=== PATIENT | female | born 1950 | race Caucasian/White ===

== ENCOUNTER 2019-06-16 22:35 | Emergency (ER) | payer OTHER, SELFPAY ==
--- NOTE | 2019-06-16 22:45 | ED.NAVMDI ---
HPI - Nausea/Vomiting/Diarrhea General Chief complaint: Nausea/Vomiting/Diarrhea Stated complaint: DIZZY,NAUSEA BLOOD SUGAR 145 Time Seen by Provider: 06/16/19 22:38 Source: patient and family Mode of arrival: ambulatory Limitations: no limitations History of Present Illness HPI Narrative: 69-year-old female nonsmoker with benign medical history presents with her friend in the chief complaint of feeling very poorly starting this afternoon including nausea, vomiting and now some lightheadedness. She states she ate a whole bag of chocolate chips, which is atypical for her, and developed a poor appetite in the aftermath and 1 episode of prolonged vomiting. She has no associated pain, fever or chills. She denies any recent antibiotics or change in her diet other than that which is noted. She denies alcohol, street drugs. She was seen and evaluated by paramedics on [facility] and sent here for further evaluation. MD complaint: nausea and vomiting Onset (ago): hour(s) Description of Vomiting: food contents Description of Diarrhea: none Associated Abdominal Pain: No Severity: moderate Associated symptoms: loss of appetite and fatigue Related Data Allergies Allergy/AdvReac Type Severity Reaction Status Date / Time No Known Drug Allergies Allergy Verified 06/16/19 22:48 Review of Systems Constitutional Constitutional: Denies chills, Reports fatigue, Denies fever(s), Denies frequent falls, Denies lethargy and Reports weakness Eyes Eyes: Denies change in vision, Denies eye discharge, Denies irritation and Denies loss of vision ENT Ears, Nose, Mouth, and Throat: Denies change in voice, Denies dizziness, Denies neck pain, Denies sore throat and Denies throat swelling Cardiovascular Cardiovascular: Denies chest pain, Denies irregular heart rhythm, Denies lightheadedness, Denies palpitations, Denies dyspnea, Denies dyspnea on exertion and Denies orthopnea Respiratory Respiratory: Denies cough, Denies dyspnea, Denies dyspnea on exertion and Denies wheezing Gastrointestinal Gastrointestinal: Denies abdominal pain, Denies change in bowel habits, Denies diarrhea, Reports nausea and Reports vomiting Genitourinary Genitourinary: Denies hematuria, Denies flank pain, Denies urinary incontinence and Denies urinary urgency Musculoskeletal Musculoskeletal: Denies back pain, Denies muscle weakness, Denies neck pain, Denies numbness and Denies tingling Integumentary/Breasts Skin/Breast: Denies pruritus, Denies erythema, Denies rash and Denies wounds Neurologic Neurologic: Denies behavioral changes, Denies confusion, Denies dizziness, Denies frequent falls, Denies loss of vision, Denies numbness, Denies tingling and Reports weakness Psychiatric Psychiatric: Denies anxiety, Denies behavioral changes, Denies confusion, Denies depression, Denies homicidal ideation and Denies suicidal ideation Endocrine Endocrine: Reports fatigue, Denies flushing and Denies palpitations Hematologic/Lymphatic Hematologic/Lymphatic: Denies easy bruising Allergic/Immunologic Allergic/Immunologic: Denies urticaria, Denies throat swelling and Denies wheezing [facility] Medical History (Updated 06/17/19 @ 00:47 by Isaak Chow DO) Feared complaint without diagnosis (Acute) Social History (Updated 06/16/19 @ 22:48 by Isaak Chow DO) Smoking Status: Never smoker Social History (Updated 06/16/19 @ 22:48 by Isaak Chow DO) Smoking Status: Never smoker Exam Narrative Exam Narrative: GENERAL: [69] year old patient appears stated age. Well-nourished, well-developed patient, in mild distress. Clearly not feeling well HEAD: Atraumatic. Normocephalic. EYES: Pupils equal round and reactive. Extraocular motions intact. No scleral icterus. No injection or drainage. ENT: Nose without bleeding, purulent drainage. Throat without erythema, tonsillar hypertrophy or exudate. Airway patent. NECK: Trachea midline. Non tender CARDIOVASCULAR: Regular rate and rhythm without murmurs, gallops, or rubs. RESPIRATORY: Clear to auscultation. Breath sounds equal bilaterally. No wheezes, rales, or rhonchi. GASTROINTESTINAL: Abdomen soft, non-tender, nondistended. EXTREMITIES: No edema or joint tenderness. BACK: Nontender without deformity or crepitance. No flank tenderness. NEURO: AOx3. SKIN: No rash or erythema of visible areas Initial Vital Signs Initial Vital Signs: Vital Signs Temperature 97.5 F L 06/16/19 22:46 Pulse Rate 58 L 06/16/19 22:46 Respiratory Rate 14 06/16/19 22:46 Blood Pressure 126/55 L 06/16/19 22:46 Pulse Oximetry 100 06/16/19 22:46 Course Orders Ordered: ED Orders 06/16/19 22:50 XR acute abdomen series Stat 06/16/19 23:20 Complete Blood Count AUTO DIFF Stat Comprehensive Metabolic Panel Stat Troponin I Stat 06/17/19 00:29 Urine Culture Stat Urine Microscopic Stat Discontinued Medications Sodium Chloride (Normal Saline 0.9%) 1,000 mls @ 1,000 mls/hr IV BOLUS ONE Stop: 06/16/19 23:47 Last Infusion: 06/17/19 00:26 Dose: 0 mls/hr Documented by: Admin: 06/16/19 23:20 Dose: 1,000 mls/hr Documented by: LILLIAM Ondansetron HCl (Zofran) 4 mg IV NOW ONE Stop: 06/16/19 22:49 Last Admin: 06/16/19 23:21 Dose: 4 mg Documented by: LILLIAM Ondansetron HCl (Zofran Odt Prepack) 1 bottle MISC SEEINSTR ONE Stop: 06/17/19 01:06 Last Admin: 06/17/19 01:16 Dose: 1 bottle Documented by: LILLIAM Pantoprazole Sodium (Protonix) 40 mg IV NOW ONE Stop: 06/16/19 22:49 Last Admin: 06/16/19 23:21 Dose: 40 mg Documented by: LILLIAM Reevaluation(s) Reevaluation #1: Patient feels tremendous improvement after above-stated therapies. Reevaluation #2: She has unremarkable orthostatics, ambulation trial at baseline Vital Signs Vital signs: Vital Signs - 8 hr 06/16/19 22:46 06/16/19 23:33 06/17/19 00:56 Temperature 97.5 F L Pulse Rate 58 L 55 L 64 Pulse Rate [Orthostatic Lying] Pulse Rate [Orthostatic Sitting] Pulse Rate [Orthostatic Standing] Respiratory Rate 14 16 15 Blood Pressure 126/55 L Blood Pressure [Left Arm] 112/61 115/59 L Blood Pressure [Orthostatic Lying] Blood Pressure [Orthostatic Sitting] Blood Pressure [Orthostatic Standing] Pulse Oximetry 100 100 100 06/17/19 01:03 06/17/19 01:05 Temperature Pulse Rate 71 Pulse Rate [Orthostatic Lying] 61 Pulse Rate [Orthostatic Sitting] 57 L Pulse Rate [Orthostatic Standing] 61 Respiratory Rate Blood Pressure Blood Pressure [Left Arm] Blood Pressure [Orthostatic Lying] 110/44 L Blood Pressure [Orthostatic Sitting] 115/59 L Blood Pressure [Orthostatic Standing] 114/61 Pulse Oximetry MDM - Nausea/Vomiting/Diarrhea Lab Data Result diagrams: 06/16/19 23:20 06/16/19 23:20 Labs: Lab Results 06/16/19 06/16/19 06/17/19 Range/Units 23:20 23:20 00:29 WBC 7.2 (4.5-11.0) X10^3/uL RBC 4.15 (4.0-5.2) X10^6/uL Hgb 13.5 (12.0-16.0) g/dL Hct 39.6 (36-46) % MCV 95.5 (80-100) fL MCH 32.4 (26-34) PG MCHC 34.0 (30-36) % RDW 12.9 (11.6-14.8) % Plt Count 189 (150-400) X10^3/uL Neut % (Auto) 77.9 H (50-75) % Lymph % (Auto) 14.6 L (25-40) % [place] % (Auto) 5.7 (3-14) % Eos % (Auto) 1.6 L (2-4) % Baso % (Auto) 0.2 (0-2) % Neut # (Auto) 5600 (9664-3080) /uL Lymph # (Auto) 1000 L (9215-6142) /uL [place] # (Auto) 400 (0-900) /uL Eos # (Auto) 100 (0-450) /uL Baso # (Auto) 0 (0-100) /uL Sodium 140 (137-145) mmol/L Potassium 3.4 (3.4-5.1) mmol/L Chloride 106 (98-107) mmol/L Carbon Dioxide 23 (22-32) mmol/L BUN 15 (7-17) mg/dL Creatinine 0.60 (0.52-1.04) mg/dL Estimated GFR > 60.0 (>60) mL/min BUN/Creatinine Ratio 25.0 H (6-22) Glucose 124 H (80-110) mg/dL Calcium 9.4 (8.4-10.2) mg/dL Total Bilirubin 0.9 (0.2-1.3) mg/dL AST 33 (14-36) IU/L ALT 26 (9-52) IU/L Alkaline Phosphatase 103 (38-126) U/L Troponin I < 0.012 (0.01-0.034) ng/mL Total Protein 7.2 (6.3-8.2) g/dL Albumin 4.2 (3.5-5.0) g/dL Globulin 3.0 (1.7-4.1) g/dL Albumin/Globulin Ratio 1.4 (1.0-2.8) Urine RBC None seen (0-5/HPF) Urine WBC 0-1/hpf (0-5/HPF) Urine Bacteria None seen (None) Ur Culture Indicated? Specimen cultured Micro UA Comment * Urine Dip Bedside Urine Glucose Negative Bedside Urine Bilirubin - Negative Bedside Urine Ketone +++ 80 Urine Specific [place] 1.015 Bedside Urine Occult Blood - Negative Bedside Urine pH 7.0 Bedside Urine Protein +/- 15 Bedside Urine Urobilinogen +/- 1mg Bedside Urine Nitrite - Negative Bedside Urine Leukocytes +/- 15 Esterase Imaging Data Abdominal x-ray: Attestation: I personally reviewed and interpreted this imaging study as follows: My impression: [facility] Narrative Medical decision making narrative: Multiple etiologies for patient's symptoms considered including: [Bowel obstruction versus cardiac event versus gastritis versus GERD versus other] Patient's symptoms improved or duration of stay with above-stated therapies. Findings and discharge diagnosis discussed with patient/family followed by verbalization of understanding Return precautions discussed with patient/family whom verbalize understanding. Discharge Plan Departure Patient Disposition: Home Clinical Impression: Dehydration Vomiting Qualifiers: Vomiting type: unspecified Vomiting Intractability: non-intractable Nausea presence: with nausea Qualified Code(s): R11.2 - Nausea with vomiting, unspecified Discharge Date/Time: 06/17/19 01:27 Instructions: DI for Vomiting -- Adult Activity Restrictions/Additional Instructions: 1. Drink plenty of fluids with frequent small sips. 2. For the next 24 hours a clear liquid diet is advised. After that please employ a brat diet which would include bananas, rice, apples, toast. 3. Please take medications as directed. 4. Please follow-up with your doctor in the next 1-2 days. Call the office for an appointment. 5. Please return to the emergency Department for any worsening or persistent symptoms, such as increasing pain or fever.
[2019-06-16 22:46] VITALS: BP 126/55; PULSE 58; RESP 14; TEMP 36.4; O2SAT 100; BMI 18.3
--- NOTE | 2019-06-16 22:50 | DI.RAD.S_ITS ---
PROCEDURE: XR ACUTE ABDOMEN SERIES INDICATIONS: Nausea, vomiting TECHNIQUE: One view chest and two views of the abdomen were acquired. COMPARISON: None. FINDINGS: Surgical changes and devices: None. Chest: Lungs are abnormal with large lung volumes suggestive of COPD. 3 small radiodensities are clustered at the lateral left upper lobe the largest of which measures approximately 9 mm. No comparisons are available for review. Chronicity of these abnormalities therefore is uncertain.. Heart size is normal. No pleural effusions. No pneumoperitoneum. Abdomen: Bowel gas pattern is normal. No suspicious calcifications. Visualized solid organ contours appear normal. Bones: No suspicious bony lesions. IMPRESSION: COPD suspected, no pneumonia found. Large lung volumes, lateral left upper lobe clustered radiodensities the largest of which measures up to 9 mm. To obtain. Otherwise followup in one-2 weeks by two-view chest is recommended and if these lesions persist followup CT scanning would appear necessary also. Dictated by: Santos Whitehead M.D. on 06/17/2019 at 8:28 Approved by: Santos Whitehead M.D. on 06/17/2019 at 9:02
[2019-06-16] MEDS: SODIUM CHLORIDE 0.9% 1,000 ML 1000 ML IV (23:20)
[2019-06-16] MEDS: ONDANSETRON 4 MG/2 ML INJ IV (23:21)
[2019-06-16] MEDS: PANTOPRAZOLE 40 MG VIAL IV (23:21)
[2019-06-16 23:32] LABS: Add Manual Diff / Slide Review NO; Basophils Absolute Auto 0 /uL (0-100); Basophils Percent Auto 0.2 % (0-2); Eosinophils Absolute Auto 100 /uL (0-450); Eosinophils Percent Auto 1.6 % (2-4); Hematocrit 39.6 % (36-46); Hemoglobin 13.5 g/dL (12.0-16.0); Lymphocytes Absolute Auto 1000 /uL (1100-4500); Lymphocytes Percent Auto 14.6 % (25-40); Mean Corpuscular Hemoglobin 32.4 PG (26-34); Mean Corpuscular Volume 95.5 fL (80-100); Monocytes Absolute Auto 400 /uL (0-900); Monocytes Percent Auto 5.7 % (3-14); Neutrophils Absolute Auto 5600 /uL (1500-7000); Neutrophils Percent Auto 77.9 % (50-75); Platelet Count 189 X10^3/uL (150-400); Red Blood Cell Count 4.15 X10^6/uL (4.0-5.2); Red Cell Distribution Width 12.9 % (11.6-14.8); White Blood Cell Count 7.2 X10^3/uL (4.5-11.0)
[2019-06-16 23:33] VITALS: BP 112/61; PULSE 55; RESP 16; O2SAT 100
[2019-06-16 23:38] LABS: Alanine Aminotransferase 26 IU/L (9-52); Albumin 4.2 g/dL (3.5-5.0); Albumin Globulin Ratio 1.4 (1.0-2.8); Alkaline Phosphatase 103 U/L (38-126); Aspartate Aminotransferase 33 IU/L (14-36); Bilirubin Total 0.9 mg/dL (0.2-1.3); Blood Urea Nitrogen 15 mg/dL (7-17); Calcium 9.4 mg/dL (8.4-10.2); Carbon Dioxide 23 mmol/L (22-32); Chloride 106 mmol/L (98-107); Estimated Glomerular Filt Rate > 60.0 mL/min (>60); Glucose 124 mg/dL (80-110); HEMOLYSIS < 15 (0-50); Potassium 3.4 mmol/L (3.4-5.1); Sodium 140 mmol/L (137-145); Total Protein 7.2 g/dL (6.3-8.2)
[2019-06-16 23:50] LABS: Troponin I < 0.012 ng/mL (0.01-0.034)
[2019-06-17 00:47] LABS: Bacteria Urine None Seen; RBC Urine None Seen (0-5/HPF)
[2019-06-17 00:56] VITALS: BP 115/59; PULSE 64; RESP 15; O2SAT 100
[2019-06-17 01:03] VITALS: BP 110/44; BP 114/61; BP 115/59; PULSE 57; PULSE 61
[2019-06-17 01:05] VITALS: PULSE 71
[2019-06-17 01:16] LABS: WBC Urine 0-1/HPF (0-5/HPF)
[2019-06-17] MEDS: ONDANSETRON 4 MG ODT PREPACK 1 BOTTLE MISC (01:16)
[2019-06-17 01:17] LABS: Culture Indicated Urine Specimen Cultured
== END 2019-06-17 01:27 | disposition home or self-care (01) ==
PROVIDERS: Emergency Provider Emergency Medicine; PCP Nurse Practitioner Family
DX: E86.0 Dehydration (principal); R11.2 Nausea with vomiting, unspecified
CPT/HCPCS: 36591; 74022; 80053; 81003; 81015; 84484; 85025; 87086; 96361; 96374; 96375; 99283; 99284; C9113; J2405

== ENCOUNTER → 2022-10-02 10:58 | Outpatient (CLI) | payer MEDICARE, SELFPAY ==
[2022-10-02 20:25] LABS: Hemoglobin A1C% w Est Avg Glu 5.7 % (4.0-6.0)
[2022-10-02 20:29] LABS: C-Reactive Protein Quant < 0.5 mg/dL (<1.0); Uric Acid 4.5 mg/dL (2.5-6.2)
[2022-10-02 20:51] LABS: Erythrocyte Sedimentation Rate 7 MM/HR (0-20)
[2022-10-06 13:36] LABS: Albumin 3.9 g/dL (2.9-4.4); Alpha-1-Globulin 0.2 g/dL (0.0-0.4); Alpha-2-Globulin 0.6 g/dL (0.4-1.0); Gamma Globulin 1.3 g/dL (0.4-1.8); Globulin Total 3.1 g/dL (2.2-3.9)
== END ==
PROVIDERS: Family Medicine; PCP Physician Assistant; Visit Provider Physician Assistant
DX: R20.8 Other disturbances of skin sensation (principal); G57.93 Unspecified mononeuropathy of bilateral lower limbs
CPT/HCPCS: 83036; 84155; 84165; 84550; 85651; 86140

== ENCOUNTER → 2022-10-31 13:56 | Outpatient (CLI) | payer MEDICARE, SELFPAY ==
[2022-10-31 20:18] LABS: Add Manual Diff / Slide Review NO; Basophils Absolute Auto 0 /uL (0-100); Basophils Percent Auto 0.3 % (0-2); Eosinophils Absolute Auto 0 /uL (0-450); Eosinophils Percent Auto 0.6 % (2-4); Hematocrit 38.3 % (36-46); Hemoglobin 13.1 g/dL (12.0-16.0); Lymphocytes Absolute Auto 1300 /uL (1100-4500); Lymphocytes Percent Auto 27.9 % (25-40); Mean Corpuscular HGB Conc 34.3 % (30-36); Mean Corpuscular Hemoglobin 32.1 PG (26-34); Mean Corpuscular Volume 93.7 fL (80-100); Monocytes Absolute Auto 400 /uL (0-900); Monocytes Percent Auto 8.9 % (3-14); Neutrophils Absolute Auto 3000 /uL (1500-7000); Neutrophils Percent Auto 62.3 % (50-75); Platelet Count 198 X10^3/uL (150-400); Red Blood Cell Count 4.09 X10^6/uL (4.0-5.2); Red Cell Distribution Width 13.6 % (11.6-14.8); White Blood Cell Count 4.8 X10^3/uL (4.5-11.0)
[2022-10-31 20:50] LABS: TSH w/ Reflex to FT4 2.91 uIU/mL (0.47-4.68)
[2022-10-31 21:09] LABS: Vitamin B12 332 pg/mL (239-931)
== END ==
PROVIDERS: PCP Physician Assistant; Visit Provider Physician Assistant
DX: R41.3 Other amnesia (principal); Z82.0 Family history of epilepsy and other diseases of the nervous system
CPT/HCPCS: 82607; 84443; 85025

== ENCOUNTER → 2022-12-04 13:15 | Outpatient (CLI) | payer MEDICARE, SELFPAY ==
[2022-12-04 20:18] LABS: Alanine Aminotransferase 21 IU/L (<35); Albumin Globulin Ratio 1.4 (1.0-2.8); Alkaline Phosphatase 78 U/L (38-126); Aspartate Aminotransferase 31 IU/L (14-36); BUN Creatinine Ratio 14.1 (6-22); Bilirubin Total 2.1 mg/dL (0.2-1.3); Blood Urea Nitrogen 11 mg/dL (7-17); Calcium 9.1 mg/dL (8.4-10.2); Carbon Dioxide 28 mmol/L (22-32); Chloride 104 mmol/L (98-107); Estimated Glomerular Filt Rate > 60 mL/min (>60); Globulin 2.8 g/dL (1.7-4.1); Glucose 89 mg/dL (80-110); HEMOLYSIS < 15 (0-50); Potassium 4.3 mmol/L (3.4-5.1); Sodium 138 mmol/L (137-145); Total Protein 6.8 g/dL (6.3-8.2)
[2022-12-04 21:00] LABS: Hep C Virus Ab w/Reflex Quant NEGATIVE s/c (NEGATIVE)
== END ==
PROVIDERS: PCP Physician Assistant; Visit Provider Physician Assistant
DX: R41.3 Other amnesia (principal)
CPT/HCPCS: 80053; 86803

== ENCOUNTER → 2024-08-28 14:00 | Outpatient (CLI) | payer MEDICARE, OTHER, SELFPAY ==
[2024-08-28 20:20] LABS: Folate 3.6 ng/mL (2.76-20.0); Vitamin B12 817 pg/mL (239-931)
== END ==
PROVIDERS: Registered Nurse; PCP Family Medicine
DX: R41.3 Other amnesia (principal); R53.81 Other malaise; E55.9 Vitamin D deficiency, unspecified; Z82.0 Family history of epilepsy and other diseases of the nervous system; R53.83 Other fatigue
CPT/HCPCS: 82607; 82746

== ENCOUNTER → 2024-11-25 17:15 | Outpatient (CLI) | payer MEDICARE, OTHER, SELFPAY | PROVIDERS: PCP Family Medicine; Visit Provider Physician Assistant | DX: R31.9 Hematuria, unspecified (principal) | CPT/HCPCS: 87086 ==